=== PATIENT | female | born 1995 | race Caucasian/White ===

== ENCOUNTER 2016-12-08 09:00 | Emergency (ER) | payer OTHER ==
[~2016-12-08] VITALS: Ht 170.2 cm; Wt 60.0 kg
[2016-12-08 09:02] VITALS: BP 133/71; PULSE 118; RESP 18; TEMP 97.8; O2SAT 99
[2016-12-08] MEDS ORDERED: MULT1TAB46 PO (09:22)
[2016-12-08] MEDS ORDERED: birth control PO (09:22)
--- NOTE | 2016-12-08 09:48 | PD ---
HPI Chief Complaint: Respiratory Symptoms Time Seen by Provider: 09:47 Travel History International Travel<30 days: No Contact w/Intl Traveler<30days: No Traveled to known affect area: No History of Present Illness HPI 21-year-old female came to the emergency room with history of sensation that her tongue and throat was swelling up and closing. Patient says that this started around 8:30 AM this morning. After that she started to panic and came to the emergency room. Patient says this has happened to her in the past. She has had many strep throats in the past. Her throat does feel sore. She was afebrile in the emergency room. She is able to talk and handle her secretions well. Vital signs are suggestive of tachycardia in triage which has slowly been coming down. Currently she says she has been breathing okay and it feels a little better. Patient is not a smoker. She cannot think of any medication or food that she took that could've caused this. PFSH Past Medical History Narrative Medical List of her past medical, surgical, social and family history is reviewed from the nursing note. Medical other: Yes (cyst ) ?: Not Past Surgical History Other Surgery: Yes (breast augmention) Social History Alcohol Use: No Tobacco Use: No Substance Use: No Allergies-Medications (Allergen,Severity, Reaction): Coded Allergies: amoxicillin (Verified Allergy, Unknown, 12/08/16) latex (Verified Allergy, Unknown, 12/08/16) Comments List of her allergies reviewed from the nursing note. Reported Meds & Prescriptions Reported Meds & Active Scripts Active Prednisone 20 Mg Tab 20 Mg PO BID 3 Days Benadryl Allergy (Diphenhydramine HCl) 25 Mg Cap 1 Tab PO Q6HR 5 Days Reported Multi Vitamin Daily (Multiple Vitamin) 1 Tab Tab 1 Tab PO DAILY [ control ] 1 Tab PO DAILY Narrative Medication List of her home medications reviewed from the nursing note. Review of Systems Except as stated in HPI: all other systems reviewed are Neg HENT: Positive: Other (throat swelling) Physical Exam Narrative GENERAL: Awake, alert, anxious, mild distress SKIN: Focused skin assessment warm/dry. HEAD: Atraumatic. Normocephalic. EYES: Pupils equal and round. No scleral icterus. No injection or drainage. ENT: No nasal bleeding or discharge. Mucous membranes pink and moist. No pharyngeal erythema or exudates. Uvula and soft tissue and the pharynx appears to be within normal limits. The tongue is questionably swollen. No stridor or drooling NECK: Trachea midline. No JVD. CARDIOVASCULAR: Regular rate and rhythm. No murmur appreciated. RESPIRATORY: No accessory muscle use. Clear to auscultation. Breath sounds equal bilaterally. GASTROINTESTINAL: Abdomen soft, non-tender, nondistended. Hepatic and splenic margins not palpable. MUSCULOSKELETAL: No obvious deformities. No clubbing. No cyanosis. No edema. NEUROLOGICAL: Awake and alert. No obvious cranial nerve deficits. Motor grossly within normal limits. Normal speech. PSYCHIATRIC: Appropriate mood and affect; insight and judgment normal. Data Data Last Documented VS Vital Signs Date Time Temp Pulse Resp B/P (MAP) Pulse Ox O2 Delivery O2 Flow Rate FiO2 12/08/16 14:58 98 17 121/60 (80) 100 12/08/16 09:18 Room Air 12/08/16 09:02 97.8 Orders Orders Dexamethasone Inj (Decadron Inj) (12/08/16 10:00) Diphenhydramine (Benadryl) (12/08/16 11:30) Ed Discharge Order (12/08/16 14:28) [facility] Medical Decision Making Medical Screen Exam Complete: Yes Emergency Medical Condition: Yes Medical Record Reviewed: Yes Differential Diagnosis Angioedema, anxiety Narrative Course 10:33 AM in my opinion given what my physical exam shows I am not convinced that there is any angioedema. However I the would give the patient the benefit of doubt of her subjective feeling of her throat swelling up. I have ordered for IM Decadron. I will watch her here for 2 hours. If she does okay I will discharge her home. I explained this to the patient and she understands. 11:30 AM patient's grandmother came out to say that she noticed a rash developing on her neck as well as her shoulder. I went to see the rash and it was diffuse macular erythematous blanching rash on the lateral aspect of her neck mostly on the right side and right shoulder area. I ordered Benadryl IV for her. I will watch her for 2 more hours. 2:31 PM patient continues to do better. I will discharge her home. Procedures EKG Prior to Arrival: No Diagnosis Primary Impression: Allergic reaction Qualified Codes: T78.40XA - Allergy, unspecified, initial encounter Referrals: Primary Care Physician 2 days Med/Other Pt SpecificInfo: Prescription(s) given Scripts Prednisone (Prednisone) 20 Mg Tab 20 MG PO BID for 3 Days, #6 TAB 0 Refills Prov: Star Foster MD 12/08/16 Diphenhydramine HCl (Benadryl Allergy) 25 Mg Cap 1 TAB PO Q6HR for 5 Days Prov: Star Foster MD 12/08/16 Disposition: 01 DISCHARGE HOME Condition: Stable Star Foster MD Dec 08, 2016 09:48
[2016-12-08] MEDS ORDERED: DEXAMETHASONE SOD PHOS 20 MG/5 ML VIAL IM ONE (10:00)
[2016-12-08] MEDS ORDERED: diphenhydrAMINE HCL 50 MG CAP PO ONE (11:30)
[2016-12-08] MEDS ORDERED: PRED20 PO (14:27)
[2016-12-08] MEDS ORDERED: BENA25CA4 PO (14:27)
[2016-12-08 14:58] VITALS: BP 121/60
== END 2016-12-08 14:58 | disposition home or self-care (01) ==
LOC: NEPE 09:00
DX: T78.40XA Allergy, unspecified, initial encounter (principal)
CPT/HCPCS: 96372; 99284; J1100; Q0163